=== PATIENT | female | born 1995 | race African-American/Black ===

== ENCOUNTER 2024-03-28 03:43 | Inpatient (IN) | payer BC ==
[2024-03-28] MEDS ORDERED: Nalbuphine 10 MG/1 ML Vial IVPUSH PRN (03:59)
[2024-03-28] MEDS ORDERED: Ondansetron 4 MG/2 ML SDV IVPUSH PRN (03:59)
[2024-03-28] MEDS ORDERED: Calcium Carbonate 500 MG Tab.Chew PO PRN (03:59)
[2024-03-28] MEDS ORDERED: Lactated Ringers 1,000 ML IV SCH (04:00)
[2024-03-28 04:16] LABS: BASOPHILS PERCENT AUTO 0.3 % (0.0-1.0); HEMATOCRIT 41.1 % (37.0-47.0); HEMOGLOBIN 13.5 gm/dl (12.0-16.0); IMMATURE GRAN ABSOLUTE AUTO 0.02 K/mm3 (0.00-0.05); IMMATURE GRAN PERCENT AUTO 0.3 % (0.0-0.4); LYMPHOCYTES ABSOLUTE AUTO 1.4 K/mm3 (1.0-4.8); LYMPHOCYTES PERCENT AUTO 19.7 % (24.0-44.0); MEAN CORPUSCULAR HGB CONC 32.8 g/dl (32.0-36.0); MEAN CORPUSCULAR VOLUME 88.2 fl (83.0-99.0); MEAN PLATELET VOLUME 10.8 fl (9.4-12.3); MONOCYTES ABSOLUTE AUTO 0.8 K/mm3 (0.0-0.8); MONOCYTES PERCENT AUTO 11.4 % (0.0-8.0); NEUTROPHILS ABSOLUTE AUTO 4.7 K/mm3 (1.8-7.7); NEUTROPHILS PERCENT AUTO 68.3 % (41.0-71.0); PLATELET COUNT,PLT 320 K/mm3 (150-400); RED BLOOD CELL COUNT 4.66 M/mm3 (4.10-5.30); WHITE BLOOD CELL COUNT,WBC 6.94 K/mm3 (3.9-11.3)
[2024-03-28] MEDS: Oxytocin/0.9 % Sodium Chloride 30 UNIT/500 ML BAG IV SCH (04:28)
[2024-03-28] MEDS: Lidocaine 1% 50 ML MDV INJECT PRN (04:35)
[2024-03-28] MEDS ORDERED: guaiFENesin 100 MG/5 ML Soln 10 ML UD Cup PO PRN (05:00)
[2024-03-28] MEDS ORDERED: Acetaminophen 325 MG Tab PO PRN (05:00)
[2024-03-28] MEDS ORDERED: Docusate Sodium 100 MG Cap PO PRN (05:00)
[2024-03-28] MEDS: Ketorolac 30 MG/ML SDV IVPUSH ONE (05:24)
[2024-03-28] MEDS: Benzocaine/Menthol 20%-0.5% Spray 78 GM Cannister TOP PRN (07:10)
[2024-03-28] MEDS: Witch Hazel Medicated Pads 40/Jar TOP PRN (07:10)
[2024-03-28] MEDS ORDERED: Oseltamivir 75 MG Cap PO SCH (09:00)
[2024-03-28] MEDS: Ibuprofen 600 MG Tab PO SCH (11:18)
[2024-03-28] MEDS: Oseltamivir 75 MG Cap PO SCH (15:37)
== END 2024-03-30 22:30 | disposition home or self-care (01) | DRG 560 ==
LOC: JD.OB 03:43 → JD.OBCHECK 03:43 → JD.OB 03:59 → UNDOADMOB 03:59 → JD.OBCHECK 03:59 → UNDOADMOB 04:25 → JD.OB 04:25 → INTOOBSV 04:29 → OBSVTOIN 04:29 → JD.OB 04:30
PROVIDERS: ADMIT Obstetrics & Gynecology; ATTEND Obstetrics & Gynecology
PROC: 10E0XZZ Delivery of Products of Conception, External Approach (ICD-10-PCS; principal; 2024-03-28)
PROC: 0KQM0ZZ Repair Perineum Muscle, Open Approach (ICD-10-PCS; 2024-03-28)
DX: O42.02 Full-term premature rupture of membranes, onset of labor within 24 hours of rupture (principal); Z37.0 Single live birth; O34.211 Maternal care for low transverse scar from previous cesarean delivery; O99.824 Streptococcus B carrier state complicating childbirth; N85.8 Other specified noninflammatory disorders of uterus; O70.1 Second degree perineal laceration during delivery; O77.0 Labor and delivery complicated by meconium in amniotic fluid; Z3A.38 38 weeks gestation of pregnancy
CPT/HCPCS: 36415; 59025; 59409; 85025; 86592; 86850; 86900; 86901; A9270-GY; J1885; J7999